=== PATIENT | male | born 2000 | race Caucasian/White ===

== ENCOUNTER 2022-07-05 09:12 | Outpatient (CLI) | payer BC | END 2022-07-05 09:13 | disposition home or self-care (01) | LOC: NM 09:12 | PROVIDERS: ATTEND Physician Assistant Medical | DX: K21.9 Gastro-esophageal reflux disease without esophagitis (principal); R10.13 Epigastric pain; R19.4 Change in bowel habit; R11.2 Nausea with vomiting, unspecified | CPT/HCPCS: 78264; A9541 ==